=== PATIENT | female | born 1930 | race Caucasian/White ===

== ENCOUNTER → 2017-12-09 | Outpatient (CLI) | payer MEDICARE, MEDICAID ==
[~2017-12-09] MED LIST: REGADENOSON 0.4 MG/5 ML IV ONE
== END | disposition home or self-care (01) ==
LOC: NM 07:26
PROVIDERS: ATTEND Internal Medicine Cardiovascular Disease
DX: I20.8 Other forms of angina pectoris (principal); I65.8 Occlusion and stenosis of other precerebral arteries; I34.0 Nonrheumatic mitral (valve) insufficiency; R07.89 Other chest pain
CPT/HCPCS: 78452; 93017; A9500; J2785